=== PATIENT | female | born 1990 | race Caucasian/White ===

== ENCOUNTER 2016-12-17 11:55 | Emergency (ER) | payer OTHER ==
[~2016-12-17] VITALS: Ht 162.6 cm; Wt 70.0 kg
[~2016-12-17 11:55] MED LIST: ACET500C5 PO; CEPH-443 PO; CIPR500T4 PO; Hydrocodone Bit/Acetaminophen PO; IBUP400T22 PO; ZOF8 PO; ZOLP5TAB PO
[2016-12-17 12:04] VITALS: Ht 162.6 cm; Wt 70.0 kg
[2016-12-17] MEDS ORDERED: BACTDS PO (14:45)
[2016-12-17] MEDS ORDERED: IBUP-1542 PO (14:45)
[2016-12-17] MEDS ORDERED: CEPH-443 PO (14:45)
--- NOTE | 2016-12-17 14:55 | ERD ---
ER Documentation Chief Complaint Date/Time DATE: 12/17/16 TIME: 14:46 Chief Complaint ingrown toe nail HPI Patient is a 26-year-old female presents to the emergency department with concerns of the right first digit toe pain. Patient states that she's been having pain 3 days. Patient states that the distal tip of her big toe appears erythematous. The area is tender to touch. Patient states her current pain level is a 6 out of 10. Patient states it is painful to walk. Patient denies any fever, chills, nausea, vomiting. Patient states that she does have a history of the right first digit ingrown toenail. ROS All systems reviewed and are negative except as per history of present illness. Medications Home Meds Active Scripts Ibuprofen* (Motrin*) 600 Mg Tab, 600 MG PO Q6, #30 TAB Prov:MARY MILLER PA-C 12/17/16 Cephalexin* (Keflex*) 500 Mg Capsule, 500 MG PO QID for 7 Days, CAP Prov:MARY MILLER PA-C 12/17/16 Sulfamethoxazole-Trimethoprim* (Bactrim* DS) 800-160 Mg Tab, 1 TAB PO BID for 7 Days, TAB Prov:MARY MILLER PA-C 12/17/16 Cephalexin* (Keflex*) 500 Mg Capsule, 500 MG PO TID, #30 CAP Prov:TERESA VILLEGAS MD 06/10/15 [Hydrocodone Bit/Acetaminophen] 1 TAB TAB No Conflict Check, 1 TAB PO Q6H Y for MODERATE PAIN LEVEL 4-6, TAB Prov:TERESA VILLEGAS MD 06/10/15 Zolpidem Tartrate (Ambien Hilton) 5 Mg Tab, 5 MG PO HS Y for INSOMNIA, #10 Prov:TERESA VILLEGAS MD 06/10/15 Ibuprofen* (Motrin*) 400 Mg Tab, 400 MG PO Q6H Y for PAIN OR TEMP ABOVE 38C, # 30 TAB Prov:TERESA VILLEGAS MD 06/10/15 Acetaminophen* (Tylophen*) 500 Mg Capsule, 500 MG PO Q6H Y for FEVER for 5 Days , TAB Prov:IBETH VARGAS MD 06/07/15 Ondansetron Hcl* (Zofran* ODT) 8 mg -ODT Tab.disper, 8 MG PO Q6 Y for NAUSEA AND /OR VOMITING, #10 TAB Prov:IBETH VARGAS MD 06/07/15 Ciprofloxacin Hcl* (Ciprofloxacin Hcl*) 500 Mg Tablet, 500 MG PO BID for 10 Days , TAB Prov:IBETH VARGAS MD 06/07/15 Allergies Allergies: Coded Allergies: No Known Allergy (Unverified , 06/08/15) PMhx/Soc History of Surgery: No Anesthesia Reaction: No Hx Neurological Disorder: No Hx Respiratory Disorders: No Hx Cardiac Disorders: No Hx Psychiatric Problems: No Hx Miscellaneous Medical Probl: No Hx Alcohol Use: No Hx Substance Use: No Hx Tobacco Use: No Smoking Status: Never smoker Physical Exam Vitals Vital Signs Date Time Temp Pulse Resp B/P Pulse Ox O2 Delivery O2 Flow Rate FiO2 12/17/16 12:04 97.7 93 18 128/71 98 Physical Exam GENERAL: Well-developed, well-nourished female. Appears in no acute distress. HEAD: Normocephalic, atraumatic. EYES: Pupils are equally reactive bilaterally. EOMs grossly intact. No conjunctival erythema. ENT: Moist mucous membranes. No uvula deviation. No kissing tonsils. NECK: Supple. No lymphadenopathy or thyromegaly. No meningismus. LUNG: Clear to auscultation bilaterally. No rhonchi, wheezing, rales or coarse breath sounds. HEART: Regular rate and rhythm. No murmurs, rubs or gallops. EXTREMITIES: Equal pulses bilaterally. No peripheral clubbing, cyanosis or edema. No unilateral leg swelling. NEUROLOGIC: Alert and oriented. Moving all four extremities without any difficulty. Normal speech. Steady gait. SKIN: Normal color. Warm and dry. RIGHT 1st TOE: Erythema and swelling noted to the lateral aspect of the toenail. Affected area is tender to palpation. Patient has normal range of motion of all toes, ankle. Normal 2+ DP pulses. Normal capillary refill. Procedures/MDM MEDICAL DECISION MAKING: Patient is a 26-year-old female who presents with right 1st digit toe pain. Vital signs were reviewed. Patient is afebrile. Patient was not hypoxic. Physical exam findings revealed ingrown toenail of 1st big toenail. At this time, the patients presentation is most consistent with ingrown toenail. Low suspicion for deep space infection, abscess, toe fracture, pyogenic granuloma. PRESCRIPTION: Ibuprofen, Bactrim, Keflex DISCHARGE: At this time, patient is stable for discharge and outpatient management. I have instructed the patient to follow-up with his/her primary care physician in 1-2 days. Patient will need to see a electrical prospector for further management and treatment. I have instructed the patient to promptly return to the ER for any new or worsening symptoms including increased pain, fever, nausea, vomiting, weakness or LOC. The patient and/or family expressed understanding of and agreement with this plan. All questions were answered. Home care instructions were provided. Departure Diagnosis: Primary Impression: Ingrowing nail, right great toe Condition: Stable Patient Instructions: Ingrown Toenail, Infected (Abx Only) Referrals: SIMON ANDERSON KAZUTO H AYVAZIAN, HERMOZ B DPM BELCZYK, RONALD J. DPM BLACK, STEVEN [facility] YOU HAVE RECEIVED A MEDICAL SCREENING EXAM AND THE RESULTS INDICATE THAT YOU DO NOT HAVE A CONDITION THAT REQUIRES URGENT TREATMENT IN THE EMERGENCY DEPARTMENT. FURTHER EVALUATION AND TREATMENT OF YOUR CONDITION CAN WAIT UNTIL YOU ARE SEEN IN YOUR DOCTORS OFFICE WITHIN THE NEXT 1-2 DAYS. IT IS YOUR RESPONSIBILITY TO MAKE AN APPOINTMENT FOR FOLOW-UP CARE. IF YOU HAVE A PRIMARY DOCTOR --you should call your primary doctor and schedule an appointment IF YOU DO NOT HAVE A PRIMARY DOCTOR YOU CAN CALL OUR PHYSICIAN REFERRAL HOTLINE AT IF YOU CAN NOT AFFORD TO SEE A PHYSICIAN YOU CAN CHOSE FROM THE FOLLOWING [facility] [address] [facility]. [facility] [address] [facility] [facility] [address] [facility] [facility] [address] [facility]. [facility] [address] [facility]. [facility]. [address] [facility] YOU HAVE RECEIVED A MEDICAL SCREENING EXAM AND THE RESULTS INDICATE THAT YOU DO NOT HAVE A CONDITION THAT REQUIRES URGENT TREATMENT IN THE EMERGENCY DEPARTMENT. FURTHER EVALUATION AND TREATMENT OF YOUR CONDITION CAN WAIT UNTIL YOU ARE SEEN IN YOUR DOCTORS OFFICE WITHIN THE NEXT 1-2 DAYS. IT IS YOUR RESPONSIBILITY TO MAKE AN APPOINTMENT FOR FOLOW-UP CARE. IF YOU HAVE A PRIMARY DOCTOR --you should call your primary doctor and schedule and appointment IF YOU DO NOT HAVE A PRIMARY DOCTOR YOU CAN CALL OUR PHYSICIAN REFERRAL HOTLINE AT . IF YOU CAN NOT AFFORD TO SEE A PHYSICIAN YOU CAN CHOSE FROM THE FOLLOWING [facility] INSTITUTIONS: [facility] [address] [place] [address] [facility] [address] [place] [address] [facility] [address] [place] [address] Additional Instructions: Patient will need to follow up with a electrical prospector for further management. Call your primary care doctor TOMORROW for an appointment during the next 1-2 days.See the doctor sooner or return here if your condition worsens before your appointment time. MARY MILLER PA-C Dec 17, 2016 14:55
== END 2016-12-17 15:10 | disposition home or self-care (01) ==
LOC: FTE 11:55
DX: L60.0 Ingrowing nail (principal)
CPT/HCPCS: 99284